=== PATIENT | female | born 1960 | race Caucasian/White ===

== ENCOUNTER → 2023-11-14 | Emergency (ER) | payer MEDICARE, OTHER ==
[~2023-11-14] VITALS: Ht 165.1 cm; Wt 121.0 kg
[~2023-11-14] MED LIST: ONDA4TAB11 PO
[2023-11-14 09:42] VITALS: BP 148/76; TEMP 98.4; O2SAT 96
[2023-11-14 09:59] LABS: CLARITY URINE CLEAR (CLEAR); COLOR URINE YELLOW (YELLOW); GLUCOSE URINE NEGATIVE (NEGATIVE); KETONES URINE NEGATIVE (NEGATIVE); LEUKOCYTE ESTERASE URINE NEGATIVE (NEGATIVE); NITRITE URINE NEGATIVE (NEGATIVE); OCCULT BLOOD URINE NEGATIVE (NEGATIVE); PH URINE 5.5 (4.5-8.0); PROTEIN URINE 2+ (NEGATIVE); SPECIFIC GRAVITY URINE 1.025 (1.005-1.030)
[2023-11-14 10:06] LABS: HEMATOCRIT. 40.9 % (36.0-48.0); HEMOGLOBIN. 13.6 g/dL (12.0-16.0); MEAN CORPUSCULAR HGB CONC 33.3 g/dL (31.0-37.0); MEAN CORPUSCULAR VOLUME 87.1 fL (81.0-99.0); MEAN PLATELET VOLUME 8.2 fl (7.4-10.4); PLATELET 329 x1000/uL (130-400); RED BLOOD CELL COUNT 4.69 mill/uL (4.2-5.4); RED CELL DISTRIBUTION WIDTH 14.5 % (11.6-14.6); WHITE BLOOD COUNT 13.5 x1000/uL (4.5-11.0)
[2023-11-14 10:16] LABS: DIFFERENTIAL COMMENT 1
[2023-11-14 10:18] LABS: CHLORIDE 106 mEq/L (98-107); POTASSIUM 3.8 mEq/L (3.5-5.1); SODIUM 140 mEq/L (136-145)
[2023-11-14 10:19] LABS: CARBON DIOXIDE 24 mEq/L (21-32)
[2023-11-14 10:20] LABS: SQUAMOUS EPITHELIAL CELL URINE 2+ /lpf (RARE/1+)
[2023-11-14 10:20] LABS: CALCIUM 9.4 mg/dL (8.7-10.4)
[2023-11-14 10:21] LABS: BACTERIA URINE 1+
[2023-11-14 10:22] LABS: RBC URINE NONE SEEN /hpf (0-2)
[2023-11-14 10:24] LABS: CREATININE 0.8 mg/dL (0.6-1.0)
[2023-11-14 10:25] LABS: GLUCOSE 141 mg/dL (70-105); UREA NITROGEN BLOOD 14 mg/dL (9-23)
[2023-11-14 10:26] LABS: ALANINE AMINOTRANSFERASE 13 IU/L (10-49); ASPARTATE AMINOTRANSFERASE 20 IU/L (<34)
[2023-11-14 10:27] LABS: ALBUMIN 4.4 g/dL (3.2-4.8); BILIRUBIN DIRECT 0.1 mg/dL (<=3.0); BILIRUBIN TOTAL 0.5 mg/dL (0.1-1.0); PROTEIN TOTAL 7.4 g/dL (6.0-8.3)
[2023-11-14] MEDS: ONDANSETRON 4MG ODT PO ONE (11:35)
[2023-11-14 11:57] LABS: PLATELET ESTIMATE NORMAL
[2023-11-14 13:01] VITALS: PULSE 92; RESP 18
== END | disposition home or self-care (01) ==
LOC: ER 10:00
DX: R11.2 Nausea with vomiting, unspecified (principal); R19.7 Diarrhea, unspecified
CPT/HCPCS: 99284; 80076; 80048; 81003; 81025; 83690; 85025; 36415; 93005; Q0162